=== PATIENT | male | born 1955 | race Caucasian/White ===

== ENCOUNTER 2025-01-05 12:47 | Inpatient (IN) | payer MEDICARE ==
[~2025-01-05] VITALS: Ht 188 cm; Wt 99.8 kg
[2025-01-05 13:01] VITALS: TEMP 98.6
[2025-01-05 14:06] LABS: BASOPHILS % 0.3 % (0.0-1.0); EOSINOPHILS % 2.5 % (0.0-6.0); LYMPHOCYTES % 10.5 % (18.0-39.1); MONOCYTES % 7.8 % (4.4-11.3); NEUTROPHILS % 78.2 % (38.7-80.0); RED CELL DISTRIBUTION WIDTH 14.8 % (11.7-14.4)
[2025-01-05] MEDS: SODIUM CHLORIDE 0.9% 250ML 250 ML IV ONE (14:20)
[2025-01-05] MEDS: SODIUM CHLORIDE FLUSH 10 ML SYR IV PRN (14:21)
[2025-01-05 14:23] LABS: INR 1.01
[2025-01-05 14:32] LABS: EST GLOMERULAR FILTRATION RATE 16.0 ML/MIN (>=60)
[2025-01-05] MEDS: HYDROCODONE/APAP 10MG-325MG TAB PO ONE (14:39)
[2025-01-05 15:00] VITALS: PULSE 80; RESP 18
[2025-01-05] MEDS: SODIUM CHLORIDE 0.9% 1000ML 1,000 ML IV SCH (17:55)
[2025-01-05 18:17] VITALS: BP 137/72; PULSE 79; RESP 20; TEMP 99.1; O2SAT 100
[2025-01-05] MEDS ORDERED: HYDRALAZINE HCL 20 MG/ML VIAL IV PRN (19:45)
[2025-01-05] MEDS ORDERED: ACETAMINOPHEN 1000 MG/100 ML IV PRN (19:45)
[2025-01-05] MEDS ORDERED: HYDROCODONE/APAP 7.5MG-325MG 1 EA TAB PO PRN (19:45)
[2025-01-05 20:00] VITALS: BP 138/71; PULSE 79; RESP 16; TEMP 97.9; O2SAT 98
[2025-01-05] MEDS: ONDANSETRON HCL INJ 2MG/ML 2ML 2 MG/ML VIAL IV PRN (20:57)
[2025-01-05] MEDS: Morphine 4mg INJECTION 4 MG/ML INJ IV PRN (20:59)
[2025-01-06] VITALS (7 sets, daily range): BP systolic 121–160; BP diastolic 65–73; PULSE 74–90; RESP 16–18; TEMP 97.3–98.5; O2SAT 95–100
[2025-01-06] MEDS: METOCLOPRAMIDE HCL 10 MG/2ML VIAL IV STA (00:26)
[2025-01-06] MEDS: METOCLOPRAMIDE HCL 10 MG/2ML VIAL IV SCH (05:17)
[2025-01-06 05:55] LABS: BASOPHILS % 0.5 % (0.0-1.0); EOSINOPHILS % 5.0 % (0.0-6.0); LYMPHOCYTES % 14.3 % (18.0-39.1); MONOCYTES % 8.3 % (4.4-11.3); NEUTROPHILS % 71.4 % (38.7-80.0); RED CELL DISTRIBUTION WIDTH 15.0 % (11.7-14.4)
[2025-01-06 06:45] LABS: EST GLOMERULAR FILTRATION RATE 17.0 ML/MIN (>=60)
[2025-01-06] MEDS ORDERED: QUETIAPINE FUMA25 MG PO (23:30)
[2025-01-06] MEDS ORDERED: CLOPIDOGREL75 MG PO (23:32)
[2025-01-06] MEDS ORDERED: TRAZODONE HCL100 MG PO (23:34)
[2025-01-06] MEDS ORDERED: ATORVASTATIN CA20 MG PO (23:35)
[2025-01-06] MEDS ORDERED: FLOMAX0.4 MG PO (23:37)
[2025-01-06] MEDS ORDERED: LOSARTAN POTAS100 MG PO (23:37)
[2025-01-06] MEDS ORDERED: HYDROCHLOROTHIA25 MG PO (23:37)
[2025-01-06] MEDS ORDERED: HYDROCODONE BIT10 MG PO (23:49)
[2025-01-06] MEDS ORDERED: METOPROLOL SUCC25 MG PO (23:49)
[2025-01-07] VITALS: BP 136/61; PULSE 76; RESP 19; TEMP 97.7; O2SAT 100
[2025-01-07 00:11] LABS: % IRON SATURATION 21 % (15-50)
[2025-01-07 06:34] VITALS: BP 136/67; PULSE 76; RESP 16; TEMP 97.5; O2SAT 97
[2025-01-07 08:22] VITALS: BP 163/71; PULSE 77; RESP 20; TEMP 98.2; O2SAT 95
[2025-01-07 09:00] VITALS: BP 163/71; PULSE 77; RESP 20; TEMP 98.2; O2SAT 95
== END 2025-01-07 12:04 | disposition home or self-care (01) | DRG 378 ==
LOC: ER 12:51 → ERHOLD 15:26 → MED/SURG3 17:29
PROVIDERS: ADMIT Internal Medicine; ATTEND Internal Medicine
DX: K92.2 Gastrointestinal hemorrhage, unspecified (principal); D62 Acute posthemorrhagic anemia; N17.9 Acute kidney failure, unspecified; N18.9 Chronic kidney disease, unspecified; E86.0 Dehydration; K52.9 Noninfective gastroenteritis and colitis, unspecified; E66.9 Obesity, unspecified; K21.9 Gastro-esophageal reflux disease without esophagitis; I73.9 Peripheral vascular disease, unspecified; R11.2 Nausea with vomiting, unspecified; K59.00 Constipation, unspecified; Z68.28 Body mass index [BMI] 28.0-28.9, adult; Z89.611 Acquired absence of right leg above knee; Z89.612 Acquired absence of left leg above knee; F17.200 Nicotine dependence, unspecified, uncomplicated
CPT/HCPCS: 36415; 74176; 80053; 82607; 83540; 83690; 84466; 85025; 85045; 85610; 85730; 99284; J2270; J2405; J2470; J2543; J2765; J7030; J7050